=== PATIENT | male | born 1965 | race African-American/Black ===

== ENCOUNTER 2022-03-25 04:09 | Day surgery (SDC) | payer OTHER ==
[2022-03-23 10:31] VITALS: BMI 29.1
[2022-03-25] MEDS ORDERED: LIDOCAINE 1%/EPI 1:100000 (20 ML MULTI DOSE VIAL) ONE (10:33)
[2022-03-25] MEDS ORDERED: LIDOCAINE 1%/EPI 1:100000 (20 ML MULTI DOSE VIAL) IJ ONE ×3 (10:50→11:21)
[2022-03-25] MEDS ORDERED: ROCURONIUM BROMIDE 50 MG/5 ML SYRINGE ONE (10:51)
[2022-03-25] MEDS ORDERED: MIDAZOLAM HCL 2 MG/2 ML SINGLE DOSE VIAL ONE ×2 (10:51)
[2022-03-25] MEDS ORDERED: PROPOFOL 20 ML ONE (10:51)
[2022-03-25] MEDS ORDERED: ceFAZolin SODIUM 1 GM VIAL ONE (11:12)
[2022-03-25] MEDS ORDERED: ceFAZolin SODIUM 1 GM VIAL IVPB ONE (11:12)
[2022-03-25] MEDS ORDERED: DEXAMETHASONE SOD PHOSPHATE 4 MG/1 ML VIAL ONE (11:12)
[2022-03-25] MEDS ORDERED: SEVOFLURANE 250 ML BTL ONE (12:15)
[2022-03-25] MEDS ORDERED: ONDANSETRON 4 MG/2 ML VIAL IVPUSH PRN (12:43)
[2022-03-25] MEDS ORDERED: oxyCODONE HCL 5 MG TABLET PO PRN (12:43)
[2022-03-25] MEDS ORDERED: LACTATED RINGERS SOLUTION 1,000 ML IV SCH (12:45)
[2022-03-25 15:46] VITALS: PULSE 78
[2022-03-25 16:23] VITALS: BP 129/87; TEMP 97.8
== END 2022-03-25 17:45 | disposition home or self-care (01) ==
LOC: JASU-SURG 04:09
PROVIDERS: ATTEND Otolaryngology
PROC: 09BM8ZZ Excision of Nasal Septum, Via Natural or Artificial Opening Endoscopic (ICD-10-PCS; principal; 2022-03-25 11:30)
PROC: 09TL7ZZ Resection of Nasal Turbinate, Via Natural or Artificial Opening (ICD-10-PCS; 2022-03-25 11:30)
DX: J34.2 Deviated nasal septum (principal); J34.3 Hypertrophy of nasal turbinates; R09.81 Nasal congestion; E11.9 Type 2 diabetes mellitus without complications; I10 Essential (primary) hypertension
CPT/HCPCS: 82962; 88302-TC; 94760

== ENCOUNTER 2023-12-02 18:56 | Emergency (ER) | payer OTHER ==
[2023-12-02 19:00] VITALS: RESP 18; BMI 29.4
[2023-12-02] MEDS ORDERED: ACETAMINOPHEN 500 MG TABLET (FP) ONE (19:46)
[2023-12-02] MEDS ORDERED: IBUPROFEN 400 MG TABLET (FP) PO ONE (19:46)
[2023-12-02] MEDS: ACETAMINOPHEN 325 MG TABLET (FP) PO ONE (19:48)
[2023-12-02] MEDS: IBUPROFEN 400 MG TABLET (FP) PO ONE (19:48)
[2023-12-02 20:03] VITALS: BP 148/107; TEMP 98.1
[2023-12-02 20:54] VITALS: PULSE 93
== END 2023-12-02 21:00 | disposition home or self-care (01) ==
LOC: JER 18:56 → JERFT 18:56
DX: M54.50 Low back pain, unspecified (principal); R51.9 Headache, unspecified; M25.512 Pain in left shoulder; R20.2 Paresthesia of skin; S39.012A Strain of muscle, fascia and tendon of lower back, initial encounter; V79.40XA Driver of bus injured in collision with unspecified motor vehicles in traffic accident, initial encounter; Y92.410 Unspecified street and highway as the place of occurrence of the external cause
CPT/HCPCS: 99283-25